=== PATIENT | male | born 1950 ===

== ENCOUNTER 2024-07-17 20:35 | Emergency (ER) | payer MEDICARE, SELFPAY ==
--- NOTE | 2024-07-17 20:44 | ECG_ITS ---
[facility] [employer] [place] Test Date: 2024-07-17 Pat Name: Dev Lazaro Department: Room: Gender: Male [employer]er: : [id number] Requested By: Zachariah Luna Order Number: [id number] Robbins MD: Sami Méndez M.D. Measurements Intervals [place] Rate: 56 P: 58 KS: 218 QRS: -61 QRSD: 126 T: 32 QT: 407 QTc: 396 Interpretive Statements SINUS BRADYCARDIA WITH FIRST DEGREE AV BLOCK WITH OCCASIONAL SUPRAVENTRICULAR PREMATURE COMPLEXES LEFT ANTERIOR FASCICULAR BLOCK [QRS AXIS <= -45, QR IN I, RS IN II] No previous ECG available for comparison Electronically Signed On 07-18-2024 23:53:02 [employer] by Sami Méndez M.D. [email or web address]
[2024-07-17 20:49] VITALS: BP 179/78; PULSE 66; TEMP 36.9; O2SAT 96; BMI 34.0
--- NOTE | 2024-07-17 20:55 | XRR_ITS ---
PROCEDURE INFORMATION: Exam: XR Chest Exam date and time: 07/17/2024 9:02 PM Age: 74 years old Clinical indication: Shortness of breath; Additional info: SOB TECHNIQUE: Imaging protocol: Radiologic exam of the chest. Views: 1 view. COMPARISON: No relevant prior studies available. FINDINGS: Lungs: Right hilar to lower lobe airspace infiltrate suspected. Pleural spaces: Unremarkable. No pleural effusion. No pneumothorax. Heart/Mediastinum: Unremarkable. No cardiomegaly. Bones/joints: Unremarkable. XR/XR chest 1V portable [id number] IMPRESSION: Right hilar to lower lobe airspace infiltrate suspected.
[2024-07-17 21:09] LABS: Basophils % 0.3 %; Eosinophils # 0.1 10^3/uL (0.0-0.8); Eosinophils % 0.9 %; Hematocrit 41.2 % (37-53); Lymphocytes # 2.2 10^3/uL (0.8-4.8); Lymphocytes % 21.5 %; Mean Corpuscular HGB Conc 34.2 g/dL (30-55); Mean Corpuscular Hemoglobin 31.3 pg (27-33); Mean Corpuscular Volume 91.4 fl (82-101); Mean Platelet Volume 8.6 fL (7.4-10.4); Monocytes # 0.8 10^3/uL (0.2-0.9); Monocytes % 7.7 %; Neutrophils # 6.92 10^3/uL (1.8-7.7); Nucleated Red Blood Cells % 0 %; Platelet Count 348 10^3/cmm (157-399); Red Blood Count 4.51 10^6/uL (3.85-5.65); White Blood Count 10.02 10^3/uL (3.29-11.43)
[2024-07-17 21:25] LABS: Alanine Aminotransferase 23 U/L (0-41); Alkaline Phosphatase 94 U/L (40-130); Anion Gap 15.3 (5-19); Aspartate Amino Transferase 32 U/L (0-40); Blood Urea Nitrogen 18 mg/dL (8-23); Carbon Dioxide 22 mmol/L (22-29); Chloride 103 mmol/L (98-107); Creatinine Clr Calc Pharmacy 68.0003; Globulin 2.5 g/dL (1.3-4.6); Glucose 157 mg/dL (65-115); Osmolality Calculated 287 mOsm/kg (285-295); Potassium 4.3 mmol/L (3.5-5.1); Sodium 136 mmol/L (136-145); Total Bilirubin 0.2 mg/dL (0.15-1.2); Total Protein 6.5 g/dL (6.6-8.7)
--- NOTE | 2024-07-17 21:47 | ED_ITS ---
HPI - SOB/Dyspnea 2 General: Chief Complaint: Shortness of Breath/Dyspnea Stated Complaint: L. side pain, SoB Time Seen by Provider: 07/17/24 21:36 History of Present Illness: HPI Narrative: Patient presents to the ER with complaints of left anterior chest wall rib pain after having a cough that was very forceful today. He said he felt a pop and has had sharp pain ever since then. Patient was diagnosed with flu a on July 06 and has had multiple coughing bouts since then. Patient's said he is also underwent a 30-day Holter monitor in the very recent past that showed some A-fib with some second-degree blocks and when they brought him back here today he got diaphoretic and short of breath and she was concerned about his heart. Related Data Allergies Allergy/AdvReac Type Severity Reaction Status Date / Time No Known Allergies Allergy Verified 07/17/24 20:51 Review of Systems 2 General: Reports: 10 or more systems reviewed and unremarkable except in HPI and below Physical Exam 2 Const: COMMON NORMALS: no acute distress, average body habitus, patient oriented x3, no limitations, healthy appearing, alert and well nourished HENMT: COMMON NORMALS: normocephalic, atraumatic, hearing grossly normal bilaterally, external ears normal, Normal external nose present and moist oral mucous membranes HEAD & SCALP: normocephalic and atraumatic NOSE: Normal external nose present EXTERNAL EAR: Yes external ears normal Neck/C-Spine: COMMON NORMALS: full ROM, no lymphadenopathy, supple, no meningeal signs, no JVD and Thyroid normal THYROID: Thyroid normal Chest: OTHER: Exquisite tenderness to palpation of the left anterior costal cartilaginous border of the ribs. Resp: COMMON NORMALS: normal respiratory effort, No retractions, No use of accessory muscles and clear to auscultation bilaterally AUSCULTATION: clear to auscultation bilaterally Cardio: COMMON NORMALS: no JVD, regular rate, regular rhythm, S1 normal heart sound present, S2 normal heart sound present, No gallops present (Cardio), No clicks present (Cardio), No murmurs present (Cardio) and No rub (Cardio) R ATE: regular rate RHYTHM: regular rhythm HEART SOUNDS: S1 normal heart sound present and S2 normal heart sound present GI: COMMON NORMALS: Normal to inspection, nondistended, normoactive bowel sounds present, Soft to palpation, non-tender, No hepatosplenomegaly present and no masses PALPATION: Yes Soft to palpation and Yes No hepatosplenomegaly present Neuro: COMMON NORMALS: patient oriented x3 SENSORIUM/ORIENTATION: Yes alert MENINGEAL SIGNS: Yes no meningeal signs Course 2 Vital Signs: Vital signs: Vital Signs Temperature 98.4 F 07/17/24 20:49 Pulse Rate 55 L 07/17/24 22:07 Blood Pressure 157/84 07/17/24 22:07 Pulse Oximetry 93 07/17/24 22:07 Oxygen Delivery Me thod Room Air 07/17/24 22:07 MDM - SOB/Dyspnea Medical Decision Making Chest x-ray showed right hilar but lower lobe infiltrate suspected, white blood cell count normal at 10.0, everything else was unremarkable. Patient with discrete tenderness to palpation over left costal cartilage junction will be diagnosed with chest wall pain and discharge. Patient has known influenza A. Medical Records I reviewed the patient's medical records. Lab Data I reviewed the patient's lab results. 07/17/24 21:02 07/17/24 21:02 Labs/Radiology: Radiology Impressions Chest X-Ray 07/17/24 20:55 IMPRESSION: Right hilar to lower lobe airspace infiltrate suspected. Laboratory Results WBC 10.02 10^3/uL (3.29-11.43) 07/17/24 21:02 RBC 4.51 10^6/uL (3.85-5.65) 07/17/24 21:02 Hgb 14.10 g/dL (11.27-16.99) 07/17/24 21: Hct 41.2 % (37-53) 07/17/24 21:02 MCV 91.4 fl (82-101) 07/17/24 21:02 MCH 31.3 pg (27-33) 07/17/24 21:02 MCHC 34.2 g/dL (30-55) 07/17/24 21:02 RDW 12.0 % (12.1-15.1) L 07/17/24 21:02 Plt Count 348 10^3/cmm (157-399) 07/17/24 21: MPV 8.6 fL (7.4-10.4) 07/17/24 21:02 Neut % (Auto) 69.0 % 07/17/24 21:02 Lymph % (Auto) 21.5 % 07/17/24 21:02 Garvin % (Auto) 7.7 % 07/17/24 21:02 Eos % (Auto) 0.9 % 07/17/24 21:02 Baso % (Auto) 0.3 % 07/17/24 21:02 Neut # (Auto) 6.92 10^3/uL (1.8-7.7) 07/17/24 21:02 Lymph # (Auto) 2.2 10^3/uL (0.8-4.8) 07/17/24 21:02 Garvin # (Auto) 0.8 10^3/uL (0.2-0.9) 07/17/24 21:02 Eos # (Auto) 0.1 10^3/uL (0.0-0.8) 07/17/24 21:02 Baso # (Auto) 0.0 10^3/uL (0.0-0.1) 07/17/24 21:02 Nucleated RBC % (auto) 0 % 07/17/24 21:02 Nucleated RBCs # 0.0 /100WBC 07/17/24 21:02 Sodium 136 mmol/L (136-145) 07/17/24 21:02 Potassium 4.3 mmol/L (3.5-5.1) 07/17/24 21:02 Chloride 103 mmol/L (98-107) 07/17/24 21:02 Carbon Dioxide 22 mmol/L (22-29) 07/17/24 21:02 Anion Gap 15.3 (5-19) 07/17/24 21:02 BUN 18 mg/dL (8-23) 07/17/24 21:02 Creatinine 1.1 mg/dL (0.7-1.2) 07/17/24 21:02 GFR Calculation Not Reportable 07/17/24 21:02 Glucose 157 mg/dL (65-115) H 07/17/24 21:02 Calculated Osmolality 287 mOsm/kg (285-295) 07/17/24 21:02 Calcium 9.0 mg/dL (8.5-10.5) 07/17/24 21:02 Total Bilirubin 0.2 mg/dL (0.15-1.2) 07/17/24 21:02 AST 32 U/L (0-40) 07/17/24 21:02 ALT 23 U/L (0-41) 07/17/24 21:02 Alkaline Phosphatase 94 U/L (40-130) 07/17/24 21:02 Troponin T Baseline 14 ng/L (0-15) 07/17/24 21:02 Troponin T 120 Minute 18.35 ng/L (0-15) H 07/17/24 22:42 Delta Troponin T 4.35 ABS# (0-10) 07/17/24 22:42 Total Protein 6.5 g/dL (6.6-8.7) L 07/17/24 21:02 Albumin 4.0 g/dL (3.5-5.2) 07/17/24 21:02 Globulin 2.5 g/dL (1.3-4.6) 07/17/24 21:02 All radiology interpretation(s) finalized by discharge Discharge Plan Discharge Patient Disposition: Home Clinical Impression: Acute chest wall pain, Cough Condition: Stable Discharge Orders: Discharge ED (Routine); Ordered 07/17/24 Ordered By: Zachariah Luna Referrals: Jaspreet Pandya MD [Primary Care Provider] - 1 week Patient Instructions: Chest Wall Pain (ED) Activity Restrictions/Additional Instructions: Your evaluation ER that included physical exam, blood work, chest x-ray, EKG, pointed to acute chest wall pain for your symptomatology. You may have your ribs or your ribs from the cartilage on the left anterior front portion. This is probably due to your coughing hard. The treatment for this is symptomatic rest. Please take Tylenol and/or ibuprofen as needed for pain. Please follow-up with your family practice physician within the next 7 to 10 days for further evaluation and treatment. Coding Level of Care Code ED [employer] for Carrie Massey
[2024-07-17 22:01] LABS: Troponin(5th) Baseline 14 ng/L (0-15)
[2024-07-17 22:07] VITALS: BP 157/84; PULSE 55; O2SAT 93
[2024-07-17 22:30] VITALS: BP 133/81; PULSE 50; O2SAT 94
[2024-07-17 23:00] VITALS: BP 138/87; PULSE 53; O2SAT 94
[2024-07-17 23:06] LABS: Troponin 5 2HR 18.35 ng/L (0-15); Troponin 5 2HR Delta 4.35 ABS# (0-10)
[2024-07-17 23:26] VITALS: BP 142/81; PULSE 48; O2SAT 96
== END 2024-07-17 23:27 | disposition home or self-care (01) ==
PROVIDERS: Emergency Medicine; Emergency Provider Emergency Medicine; PCP Family Medicine
DX: R07.89 Other chest pain (principal); R05.9 Cough, unspecified
CPT/HCPCS: 36415; 71045; 80053; 84484; 85025; 93005; 99285